=== PATIENT | female | born 1935 | race Caucasian/White ===

== ENCOUNTER 2018-10-11 17:03 | Emergency (ER) | payer MEDICARE, OTHER ==
[2018-10-11 17:12] VITALS: BP 183/67
--- NOTE | 2018-10-11 17:38 | ER Document Report ---
ED General - General Chief Complaint: Diarrhea Stated Complaint: DIARRHEA Time Seen by Provider: 10/11/18 17:21 Notes: Patient is a 83-year-old female that presents to the emergency department for chief complaint of diarrhea. Patient states that she was recently diagnosed with a sinus infection, and started on Augmentin, 4 days ago, she is been taking the medication, then started having watery diarrhea, she tried taking Imodium at home, but it did not improve so she decided come to the emergency department. She denies having any nausea or vomiting, she has been able to eat and drink well. She denies having any fevers associated with a sinus infection , she is mainly been congested, and had postnasal drip symptoms. She has had a dry cough, but denies having any chest pain or shortness of breath. She states her symptoms of her sinus congestion has lasted approximately 1 week prior to starting the antibiotics. She did not try any [id number] medications prior to his being started on the Augmentin. Past Medical History: Hypothyroidism, tremor Past Surgical History: Denies pertinent surgical history or recent surgeries Social History: Lives at home with family, denies alcohol or tobacco use. Family History: Reviewed and noncontributory for presenting illness Allergies: Reviewed, see documented allergy list. REVIEW OF SYSTEMS: Other than noted above, the 12 point review of systems was reviewed with the patient and were negative, all pertinent findings are included in the HPI. PHYSICAL EXAMINATION: Vital signs reviewed, nursing noted reviewed. GENERAL: Well-appearing, well-nourished and in no acute distress. HEAD: Atraumatic, normocephalic. EYES: Eyes appear normal, extraocular movements intact, sclera anicteric, conjunctiva are normal. ENT: nares patent, mild bilateral nasal turbinate injection, oropharynx clear without exudates. Moist mucous membranes. Sinus tenderness with palpation, TMs appear normal bilaterally. NECK: Normal range of motion, supple without lymphadenopathy LUNGS: Breath sounds clear to auscultation bilaterally and equal. No wheezes rales or rhonchi. Dry cough noted on exam HEART: Regular rate and rhythm without murmurs ABDOMEN: Soft, nontender, normoactive bowel sounds. No rebound, guarding, or rigidity. No masses appreciated. EXTREMITIES: Nontender, good range of motion, no pitting or edema. NEUROLOGICAL: No focal neurological deficits. Moves all extremities spontaneously Motor and sensory grossly intact on exam. PSYCH: Normal mood, normal affect. SKIN: Warm, Dry, normal turgor, no rashes or lesions noted on exposed skin TRAVEL OUTSIDE OF THE [place] IN LAST 30 DAYS: No - Related Data Allergies/Adverse Reactions: No Known Allergies Allergy (Verified 10/11/18 17:22) Past Medical History - Social History Smoking Status: Never Smoker Chew tobacco use (# tins/day): No Frequency of alcohol use: None Drug Abuse: None Family History: Reviewed & Not Pertinent Patient has suicidal ideation: No Patient has homicidal ideation: No - Past Medical History Cardiac Medical History: Denies: Hx Heart Attack, Hx Hypertension Pulmonary Medical History: Denies: Hx Asthma Neurological Medical History: Denies: Hx Cerebrovascular Accident, Hx Seizures Renal/ Medical History: Denies: Hx Peritoneal Dialysis GI Medical History: Denies: Hx Hepatitis, Hx Hiatal Hernia, Hx Ulcer Infectious Medical History: Denies: Hx Hepatitis Past Surgical History: Denies: Hx Hysterectomy, Hx Mastectomy, Hx Open Heart Surgery, Hx Pacemaker Physical Exam - Vital signs Vitals: Temp Pulse Resp BP Pulse Ox 97.5 F 70 16 183/67 H 96 10/11/18 17:11 10/11/18 17:11 10/11/18 17:11 10/11/18 17:11 10/11/18 17:11 Course - Re-evaluation Re-evalutation: Patient seen and examined, vital signs reviewed, patient is a well-appearing 83- year-old female, who has been having diarrhea, she good skin turgor, moist mucous membranes, did not appear clinically dehydrated. Patient did not have focal or concerning signs for acute bacterial sinusitis, do not feel that the patient needs to be on antibiotics at this time, they are only causing her to have diarrhea, which is her complaint today. I advised her to discontinue the antibiotics, which she was on Augmentin, I will provide her with a prescription for Lomotil, instructed to only take 1/2 tablet only as needed for her diarrhea , she is also instructed to take Mucinex, and Flonase. She is also advised to picking supervisor a probiotic which may help with her diarrhea as well. Patient was agreeable with this plan of care and will follow up with her primary care physician. - Vital Signs Vital signs: Temp Pulse Resp BP Pulse Ox 97.5 F 70 16 183/67 H 96 1201/18 17:11 10/11/18 17:11 10/11/18 17:11 10/11/18 17:11 10/11/18 17:11 Discharge - Discharge Clinical Impression: Diarrhea Qualifiers: Diarrhea type: unspecified type Qualified Code(s): R19.7 - Diarrhea, unspecified Condition: Stable Disposition: HOME, SELF-CARE Instructions: Diarrhea, Nonspecific ([facility]) Additional Instructions: Please discontinue taking the antibiotics, and use the Flonase, and Mucinex to help with your symptoms, also take the probiotic, and only if really needed you can take the antidiarrheal medication prescribed. Please follow-up with your primary care physician in 2-3 days, or if your symptoms are worsening any feel like you are getting dehydrated. Prescriptions: Diphenoxylate HCl/Atrop Sulf [Lomotil 2.5 mg Tablet] 1 tab PO Q6HP PRN #20 tablet PRN Reason: Diarrhea Fluticasone Propionate [Flonase Nasal [place] 50 Mcg/[place] 16 gm] 1 spray NASL Q12 #1 inhaler Guaifenesin [Mucinex] 600 mg PO BID #30 tablet. Referrals: RUBEN SAMPSON MD [Primary Care Provider] - Follow up in 3-5 days
== END 2018-10-11 17:41 | disposition home or self-care (01) ==
LOC: ER 17:03
DX: R19.7 Diarrhea, unspecified (principal); J32.9 Chronic sinusitis, unspecified; R05 Cough
CPT/HCPCS: 99283